=== PATIENT | female | born 1990 | race Caucasian/White ===

== ENCOUNTER 2018-01-02 21:19 | Emergency (ER) | payer MEDICAID ==
[2018-01-02 21:29] VITALS: BP 140/83
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
== END 2018-01-02 23:44 | disposition short-term general hospital (02) ==
LOC: ED 21:19
DX: T76.21XA Adult sexual abuse, suspected, initial encounter (principal); S41.052A Open bite of left shoulder, initial encounter; S41.051A Open bite of right shoulder, initial encounter; S11.95XA Open bite of unspecified part of neck, initial encounter; W50.3XXA Accidental bite by another person, initial encounter
CPT/HCPCS: 99283

== ENCOUNTER 2018-12-01 08:00 | Outpatient (CLI) | payer MEDICAID | END 2018-12-01 23:59 | disposition home or self-care (01) | LOC: LAB.R 08:00 | PROVIDERS: ATTEND Nurse Practitioner Obstetrics & Gynecology | DX: R10.2 Pelvic and perineal pain (principal) | CPT/HCPCS: 87480; 87510; 87660 ==